=== PATIENT | female | born 1965 | race Caucasian/White ===

== ENCOUNTER 2018-07-02 18:52 | Emergency (ER) | payer MEDICARE, OTHER ==
[2018-07-02 19:32] VITALS: BP 154/75; PULSE 88; RESP 16; TEMP 96.6; O2SAT 99
[2018-07-02 19:38] LABS: APPEARANCE,URINE Slightly Cloudy; BILIRUBIN,URINE NEGATIVE (NEGATIVE); COLOR,URINE Yellow; GLUCOSE, URINE (UA) 1+ (NEGATIVE); KETONES,URINE NEGATIVE (NEGATIVE); LEUKOCYTE ESTERASE ,URINE NEGATIVE (NEGATIVE); NITRATE,URINE POSITIVE (NEGATIVE); OCCULT BLOOD,URINE NEGATIVE (NEG-TRACE); PH,URINE 6.5
[2018-07-02 19:45] LABS: RBC,URINE 0-2 (0-3AV/HPF)
[2018-07-02 19:46] LABS: BACTERIA 4+ (< 1+); CRYSTALS NEGATIVE (0-3 AVE/HPF)
[2018-07-02] MEDS ORDERED: SULFAMETHOXAZOLE/TRIMETHOPRI 800/160 MG PO ONE (20:02)
[2018-07-02] MEDS ORDERED: PREDNISONE 20 MG TAB PO ONE (20:04)
[2018-07-02] MEDS ORDERED: DIPHENHYDRAMINE 25 MG CAP PO ONE (20:04)
[2018-07-02] MEDS ORDERED: SULFAMETHOXAZOLE/TRIMETHOPRI 800/160 MG ONE (20:32)
[2018-07-02] MEDS ORDERED: PREDNISONE 20 MG TAB ONE (20:32)
[2018-07-02] MEDS ORDERED: DIPHENHYDRAMINE 25 MG CAP ONE (20:32)
== END 2018-07-02 20:36 | disposition home or self-care (01) | DRG 607 ==
LOC: ED 18:52
DX: R21 Rash and other nonspecific skin eruption (principal); N30.00 Acute cystitis without hematuria
CPT/HCPCS: 81001; 87077; 87088; 87186; 99282; 99283; A9270-GY

== ENCOUNTER 2018-10-21 23:08 | Inpatient (IN) | payer MEDICARE, OTHER ==
[2018-10-21] MEDS ORDERED: SODIUM CHLORIDE 0.9% 1000ML 1,000 ML IV ONE (23:40)
[2018-10-21] MEDS ORDERED: INSULIN HUMAN REGULAR 100 U/ML SOL IV ONE (23:48)
[2018-10-21 23:54] LABS: BASOPHILS % (AUTO) 1 % (0-3); EOSINOPHILS % (AUTO) 2 % (0-9); HEMATOCRIT 50 % (35-47); HEMOGLOBIN 15.5 gm/dl (12.0-15.5); LYMPHOCYTES % (AUTO) 15.5 % (10-50); MEAN CORPUSCULAR HEMOGLOBIN 26.4 pg (27.0-32.0); MEAN CORPUSCULAR HGB CONC 31.4 gm/dl (32.0-36.0); MEAN CORPUSCULAR VOLUME 84 fL (81-99); MONOCYTES % (AUTO) 4.5 % (0-12); NEUTROPHILS % (AUTO) 77.5 % (37-80)
[2018-10-22 00:05] LABS: HEMOGLOBIN A1C 12.3 % (4.8-6.0)
[2018-10-22 00:12] LABS: ALBUMIN 3.8 gm/dl (3.4-5.0); BILIRUBIN,TOTAL 0.3 mg/dl (0.2-1.0); CALCIUM 9.9 mg/dl (8.5-10.1); CARBON DIOXIDE 25.3 mEq/L (21-32); CREATININE 2.19 mg/dl (0.60-1.00); POTASSIUM 3.8 mMol/L (3.5-5.1); TOTAL PROTEIN 9.2 gm/dl (6.4-8.2)
[2018-10-22] MEDS ORDERED: INSULIN HUMAN REGULAR 100 U/ML SOL ONE (00:21)
[2018-10-22] MEDS ORDERED: ACETAMINOPHEN 325 MG PO PRN (00:26)
[2018-10-22] MEDS ORDERED: LEVEMIR PEN SC SCH ×2 (00:30→09:32)
[2018-10-22] MEDS: SODIUM CHLORIDE 0.9% 1000ML 1,000 ML IV SCH ×4 (00:30→19:01)
[2018-10-22] MEDS ORDERED: NOVOLOG FLEXPEN SC SCH (00:30)
[2018-10-22] MEDS: NOVOLOG FLEXPEN SC SCH ×10 (00:30→21:47)
[2018-10-22] MEDS: NICOTINE 7 MG PATCH TD SCH (02:10)
[2018-10-22] MEDS: APAP/HYDROCODONE 1 EACH TABLET PO PRN ×3 (02:13→12:30)
[2018-10-22 07:34] LABS: APPEARANCE,URINE Cloudy; BILIRUBIN,URINE 1+ (NEGATIVE); COLOR,URINE Yellow; GLUCOSE, URINE (UA) 2+ (NEGATIVE); KETONES,URINE 1+ (NEGATIVE); LEUKOCYTE ESTERASE ,URINE 1+ (NEGATIVE); NITRATE,URINE POSITIVE (NEGATIVE); OCCULT BLOOD,URINE 2+ (NEG-TRACE); PH,URINE 5.5
[2018-10-22 07:53] LABS: BACTERIA 2+ (< 1+)
[2018-10-22 07:58] LABS: ICTOTEST,URINE NEGATIVE (NEGATIVE)
[2018-10-22] MEDS ORDERED: OMEPRAZOLE 20 MG CAPSULE PO SCH (09:00)
[2018-10-22] MEDS ORDERED: CEFTRIAXONE 1 GM (PREMIX) 1 GM/50 ML SOL IV SCH (09:45)
[2018-10-22] MEDS: GABAPENTIN 300 MG CAP PO SCH ×3 (09:46→21:43)
[2018-10-22] MEDS: ENOXAPARIN 40 MG SOL SC SCH (09:50)
[2018-10-22 09:57] LABS: CARBON DIOXIDE 27.7 mEq/L (21-32); CREATININE 1.64 mg/dl (0.60-1.00); POTASSIUM 3.4 mMol/L (3.5-5.1)
[2018-10-22] MEDS ORDERED: CEFTRIAXONE 1 GM PDS ONE ×2 (10:32→22:19)
[2018-10-22] MEDS ORDERED: SODIUM CHLORIDE 0.9% 50 ML 50 ML IV ONE ×2 (10:34→22:19)
[2018-10-22] MEDS: CEFTRIAXONE 1 GM PDS 1 GM in SODIUM CHLORIDE 0.9% 50 ML 50 ML IV SCH ×2 (10:36→22:25)
[2018-10-22] MEDS: PANTOPRAZOLE SODIUM 40 MG ECT PO SCH (11:15)
[2018-10-22] MEDS: ALBUTEROL/IPRATROPIUM 1 VIAL SOL INH SCH ×3 (11:15→22:25)
[2018-10-22] MEDS ORDERED: POTASSIUM CHLORIDE 10 MEQ CAPSULE PO ONE (11:27)
[2018-10-22] MEDS ORDERED: POTASSIUM CHLORIDE 10 MEQ TER ONE ×2 (12:44)
[2018-10-22 14:50] LABS: CALCIUM 9.1 mg/dl (8.5-10.1)
[2018-10-22] MEDS: MULTIVITAMIN2 1 EA TAB PO SCH (16:58)
[2018-10-22] MEDS: ASCORBIC ACID 500 MG TAB PO SCH (16:58)
[2018-10-22] MEDS: POLYETHYLENE GLYCOL 17 GM/1 TBS PDS PO SCH (17:30)
[2018-10-22] MEDS: SENNOSIDES A AND B 8.6 MG TAB PO SCH (17:30)
[2018-10-22] MEDS ORDERED: LEVEMIR PEN SC ONE (21:00)
[2018-10-23] MEDS: NICOTINE 7 MG PATCH TD SCH (02:17)
[2018-10-23] MEDS: SODIUM CHLORIDE 0.9% 1000ML 1,000 ML IV SCH (02:17)
[2018-10-23] MEDS: ALBUTEROL/IPRATROPIUM 1 VIAL SOL INH SCH ×2 (04:17→10:01)
[2018-10-23] MEDS: APAP/HYDROCODONE 1 EACH TABLET PO PRN (04:31)
[2018-10-23 07:41] LABS: CALCIUM 8.3 mg/dl (8.5-10.1); CREATININE 1.2 mg/dl (0.60-1.00); POTASSIUM 4.7 mMol/L (3.5-5.1)
[2018-10-23 07:51] VITALS: BP 102/62; TEMP 98
[2018-10-23] MEDS: NOVOLOG FLEXPEN SC SCH ×4 (08:10→12:25)
[2018-10-23] MEDS ORDERED: LEVEMIR PEN SC SCH (09:00)
[2018-10-23] MEDS ORDERED: CEFTRIAXONE 1 GM PDS ONE (09:46)
[2018-10-23] MEDS ORDERED: SODIUM CHLORIDE 0.9% 50 ML 50 ML IV ONE (09:46)
[2018-10-23] MEDS: POLYETHYLENE GLYCOL 17 GM/1 TBS PDS PO SCH (10:00)
[2018-10-23] MEDS: CEFTRIAXONE 1 GM PDS 1 GM in SODIUM CHLORIDE 0.9% 50 ML 50 ML IV SCH (10:01)
[2018-10-23] MEDS: GABAPENTIN 300 MG CAP PO SCH ×2 (10:03→14:09)
[2018-10-23] MEDS: ENOXAPARIN 40 MG SOL SC SCH (10:04)
[2018-10-23] MEDS: ASCORBIC ACID 500 MG TAB PO SCH (10:04)
[2018-10-23] MEDS: SENNOSIDES A AND B 8.6 MG TAB PO SCH (10:04)
[2018-10-23] MEDS: PANTOPRAZOLE SODIUM 40 MG ECT PO SCH (10:05)
[2018-10-23] MEDS: MULTIVITAMIN2 1 EA TAB PO SCH (10:05)
[2018-10-23 10:20] VITALS: PULSE 75; RESP 16; O2SAT 100
[2018-10-23] MEDS ORDERED: PNEUMOC 13-VAL CONJ-DIP CRM/PF 0.5 ML SYRINGE IM ONE (14:34)
[2018-10-23] MEDS ORDERED: INFLUENZA VIRUS VACCINE 0.5 ML SUS IM ONE (14:34)
== END 2018-10-23 15:30 | disposition home or self-care (01) | DRG 639 ==
LOC: ED 23:08 → ACUTE CARE 10-22 00:15
PROVIDERS: ADMIT Family Medicine; ATTEND Family Medicine
DX: E11.65 Type 2 diabetes mellitus with hyperglycemia (principal); E11.621 Type 2 diabetes mellitus with foot ulcer; L97.522 Non-pressure chronic ulcer of other part of left foot with fat layer exposed; G62.9 Polyneuropathy, unspecified; F32.9 Major depressive disorder, single episode, unspecified; R05 Cough
CPT/HCPCS: 36415; 80048; 80053; 81001; 82962; 83036; 85025; 87077; 87088; 87186; 87205; 90670; 90686; 94640; 99070; 99222; 99231; 99282; J0696; J1650; J1815; A6232; A9270-GY; G0008

== ENCOUNTER 2019-06-18 11:33 | Emergency (ER) | payer MEDICARE, OTHER ==
[2019-06-18 11:48] VITALS: RESP 16; TEMP 97.6
[2019-06-18] MEDS ORDERED: APAP/HYDROCODONE 1 EACH TABLET PO ONE (11:58)
[2019-06-18] MEDS ORDERED: APAP/HYDROCODONE 1 EACH TABLET ONE (12:13)
[2019-06-18 13:32] VITALS: BP 121/75; PULSE 77; O2SAT 95
== END 2019-06-18 13:40 | disposition home or self-care (01) | DRG 563 ==
LOC: ED 11:33
DX: S46.912A Strain of unspecified muscle, fascia and tendon at shoulder and upper arm level, left arm, initial encounter (principal); S40.012A Contusion of left shoulder, initial encounter; W18.30XA Fall on same level, unspecified, initial encounter; M25.512 Pain in left shoulder; E11.9 Type 2 diabetes mellitus without complications
CPT/HCPCS: 73030; 99283; 99284; A9270-GY

== ENCOUNTER 2019-06-22 11:13 | Emergency (ER) | payer MEDICARE, OTHER ==
[2019-06-22 11:24] VITALS: RESP 18; TEMP 97.2
[2019-06-22] MEDS ORDERED: KETOROLAC TROMETHAMINE 30 MG/ML SOL ONE (11:39)
[2019-06-22 11:52] VITALS: PULSE 77
[2019-06-22] MEDS ORDERED: KETOROLAC TROMETHAMINE 30 MG/ML SOL IV ONE (11:56)
[2019-06-22] MEDS ORDERED: DIAZEPAM 5MG/ML SOL IV ONE (12:27)
[2019-06-22] MEDS ORDERED: DIAZEPAM 5 MG TAB PO ONE (12:40)
[2019-06-22] MEDS ORDERED: DIAZEPAM 5 MG TAB ONE (12:41)
[2019-06-22 13:33] VITALS: BP 138/80; O2SAT 95
== END 2019-06-22 15:00 | disposition home or self-care (01) | DRG 950 ==
LOC: ED 11:13
DX: S43.402D Unspecified sprain of left shoulder joint, subsequent encounter (principal); S40.012D Contusion of left shoulder, subsequent encounter; W18.30XD Fall on same level, unspecified, subsequent encounter; E11.9 Type 2 diabetes mellitus without complications
CPT/HCPCS: 73200; 96374; 99283; 99284; J1885; A9270-GY